=== PATIENT | female | born 1970 | race African-American/Black ===

== ENCOUNTER 2017-08-30 13:05 | Inpatient (IN) | payer SELFPAY ==
[~2017-08-30 13:05] MED LIST: SOLU-Medrol 125 MG VIAL IVP SCH
[2017-08-30] MEDS ORDERED: SOLU-Medrol 125 MG VIAL IVP ONE (13:08)
[2017-08-30] MEDS ORDERED: DUONEB 0.5 MG/3 MG NEB ONE ×2 (13:08→14:53)
--- NOTE | 2017-08-30 13:13 | DR.GENAD ---
HPI - Complaint/Symptoms Chief Complaint Doctors Comments: Patient is complaining of wheezing and chest tightness for the past 20 minutes getting worst. Patient states she has been taking nebulizers at home every 3-4 hours but wheezing got worst. She has a cold, cough, but denies swelling of hands or feet. She denies fever, chills, diarrhea but states she just vomited before coming to the emergency room. - Nurses notes reviewed Nurses Notes Review: Yes - Source History Provided: Patient - Mode of Arrival Mode of Arrival: Ambulatory - Timing Came on: Suddenly - Duration Duration: Constant How lon Duration: Minutes - Location Location: chest tightness with wheezing - Severity Severity: Severe - Modifying Factors Worsens:: exertion Improves:: nothing ROS - Review of Systems Constitutional: No Symptoms Reported, Weakness Eyes: No Symptoms Reported ENTM: No Symptoms Reported Respiratoy: No Symptoms Reported, Non-Productive Cough, Short of Breath, Wheezing. negative: See HPI, Productive Cough, Moist Cough, Dry Cough, Hacking Cough, Barking Cough, Brassy Cough, Orthopnea, Stridor, Hemoptysis, Other Cardiovascular: No Symptoms Reported, Chest Pain. negative: See HPI, Edema, Palpitations, Syncope, Cyanosis, Skin Mottling, Other Gastrointestinal/Abdominal: No Symptoms Reported, Nausea, Vomiting. negative: See HPI, Abdominal Pain, Constipation, Diarrhea, Food Intolerance, Other Genitourinary: No Symptoms Reported Neurological: No Symptoms Reported Musculoskeletal: No Symptoms Reported Integumentary: No Symptoms Reported. negative: See HPI, Change in Color, Change in Hair/Nails, Dryness, Lesions, Lumps, Rash, Itching, Wound, Bruises, Juandice, Other Hematologic/Lymphatic: No Symptoms Reported Endocrine: No Symptoms Reported, Excessive Sweating Psychiatric: No Symptoms Reported PE - Vital Signs Vitals: Temperature 98.6 F Pulse Rate [Apical] 126 Pulse Rate 125 Respiratory Rate 25 Blood Pressure [Right Arm] 143/92 Blood Pressure 185/105 O2 Sat by Pulse Oximetry 91 - General Limitations: No Limitations General Appearance: Alert, In Distress (severe) - Head Head Exam: Normal Inspection, Atraumatic, Normocephalic - Eyes Eye exam: Normal Appearance, PERRL, EOMI. negative: Scleral Icterus, Conjunctival Injection, Nystagmus, Miosis, Mydrasis, Periorbital Swelling, Periorbital Tenderness, Other - ENT ENT Exam: Normal Exam, Normal Oropharynx, Normal External Ear Exam, Mucous Membranes Moist, TM's Normal Bilaterally External Ear Exam: Normal External Inspection TM/Canal Exam: Bilateral Normal Nose Exam: Normal Nose Exam Mouth Exam: Normal Inspection. negative: Drooling, Trismus, Lip Swelling, Tongue Elevation, Tongue Swelling, Laceration, Other Throat Exam: Normal Inspection - Neck Neck Exam: Normal Inspection, Full ROM, Trachea Midline. negative: Tenderness, Meningismus, Lymphadenopathy, Thyromegaly, Other - Chest Chest Inspection: Normal Inspection, Symmetric Chest Wall Rise - Respiratory Respiratory Exam: Normal Lung Sounds Bilat, Accessory Muscle Use, Prolonged Expiratory Phase, Respiratory Distress Respiratory Exam: Bilateral Wheezing (diffuse), Bilateral Rhonchi, Bilateral Decreased Breath Sounds - Cardiovascular Cardiovascular Exam: Regular Rate, Normal Rhythm, Normal Heart Sounds, Systolic Murmur - Abdominal Exam Abdominal Exam: Normal Inspection, Normal Bowel Sounds, Soft. negative: Distention, Tenderness, Guarding, Rebound, Rigidity, Dimnished Bowel Sounds, Hyperactive Bowel Sounds, Hypoactive Bowel Sounds, Organomegaly, Trauma, Incision, Ascites, Mass, Bruit, Pulsatile Mass, Hernia, Other Abdominal Tenderness: negative: RUQ, RLQ, LUQ, LLQ, Epigastrium, Suprapubic, Diffuse, Mild, Moderate, Severe, Other - Extremities Extremities Exam: Normal Inspection, Full ROM, Normal Capillary Refill. negative: Tenderness, Edema, Joint Swelling, Calf Tenderness, Other - Back Back Exam: Normal Inspection, Full ROM. negative: Tenderness, (R) CVA Tenderness, (L) CVA Tenderness, Muscle Spasm, Paraspinal Tenderness, Vertebral Tenderness, Rashes, (R) Sciatic Notch Tenderness, (L) Sciatic Notch Tendern, (R ) Straight Leg Raise, (L) Straight Leg Raise, Other - Neurologic Neurological Exam: Alert, Oriented X3, CN II-XII Intact, Normal Gait, Reflexes Normal - Psychiatric Psychiatric Exam: Normal Affect, Normal Mood. negative: Depressed, Agitated, Anxious, Flat Affect, Manic, Homicidal Ideation, Suicidal Ideation, Other - Skin Skin Exam: Warm, Dry, Intact, Normal Color Course - Reevaluation 1st: Improved - Consultation Called: 14:36 Call Returned: 14:36 (Dr. Crabtree to admit) - Education/Counseling Education/Counseling: Patient, Family Educated On: Treatment, Diagnosis, Needs for Follow Up ROR - Labs Reviewed Laboratory Results Reviewed?: Yes (all labs and x-ray results reviewed and discussed with patient) Result Diagrams: 08/30/17 13:20 08/30/17 13:20 Laboratory: WBC 14.3 X10^3/uL (3.6-10.0) H 08/30/17 13:20 RBC 5.15 X10^6/uL (3.5-5.4) 08/30/17 13:20 Hgb 14.7 g/dL (12.0-16.0) 08/30/17 13:20 Hct 43.4 % (36.0-47.0) 08/30/17 13:20 MCV 84.3 fL (80.0-100.0) 08/30/17 13:20 MCH 28.5 pg (27.0-34.0) 08/30/17 13:20 MCHC 33.8 g/dL (33.0-35.0) 08/30/17 13:20 RDW 17.0 % (11.6-16.5) H 08/30/17 13:20 Plt Count 257 X10^3/uL (150.0-450.0) 08/30/17 13:20 MPV 9.1 fL (7.4-11.0) 08/30/17 13:20 Neut % 20.2 % (42.0-75.0) L 08/30/17 13:20 Lymph % 58.1 % (21.0-51.0) H 08/30/17 13:20 [place] % 9.3 % (0.0-13.0) 08/30/17 13:20 Eos % 11.3 % (0.9-2.9) H 08/30/17 13:20 Baso % 1.1 % (0.2-1.0) H 08/30/17 13:20 Neut # 2.9 x10^3/uL (2.2-4.8) 08/30/17 13:20 Lymph # 8.3 X10^3/uL (1.3-2.9) H 08/30/17 13:20 [place] # 1.3 x10^3/uL (0.3-0.8) H 08/30/17 13:20 Eos # 1.6 x10^3/uL (0.0-0.2) H 08/30/17 13:20 Baso # 0.2 X10^3/uL (0.0-0.1) H 08/30/17 13:20 Absolute Nucleated RBC 0.1 /100WBC 08/30/17 13:20 INR Target Range - 08/30/17 13:20 INR 1.06 (0.8-1.3) 08/30/17 13:20 PTT 26.7 SECONDS (22.9-36.5) 08/30/17 13:20 PTT Comment - 08/30/17 13:20 Sodium 138 mmol/L (136-145) 08/30/17 13:20 Corrected Sodium 140 mmol/L (136-145) 08/30/17 13:20 Potassium 4.4 mmol/L (3.5-5.1) 08/30/17 13:20 Chloride 102 mmol/L (98-107) 08/30/17 13:20 Carbon Dioxide 28.0 mmol/L (21-32) 08/30/17 13:20 BUN 9 mg/dL (7-18) 08/30/17 13:20 Creatinine 1.08 mg/dL (0.55-1.02) H 08/30/17 13:20 Est GFR (MDRD) Af Amer > 60 (>60) 08/30/17 13:20 Est GFR (MDRD) Non-Af 58 (>60) L 08/30/17 13:20 Glucose 179 mg/dL (65-99) H 08/30/17 13:20 Calcium 9.4 mg/dL (8.5-10.1) 08/30/17 13:20 Corrected Calcium TNP 08/30/17 13:20 Magnesium 1.9 mg/dL (1.7-2.9) 08/30/17 13:20 Total Bilirubin 0.30 mg/dL (0.2-1.0) 08/30/17 13:20 AST 29 Units/L (15-37) 08/30/17 13:20 ALT 47 Units/L (12-78) 08/30/17 13:20 Alkaline Phosphatase 78 Units/L (46-116) 08/30/17 13:20 Creatine Kinase 166 Units/L (26-192) 08/30/17 13:20 CK-MB (CK-2) < 1.0 ng/mL (0-4.0) 08/30/17 13:20 CK/CKMB % Calc 0.6 % (<4) 08/30/17 13:20 Troponin I < 0.02 ng/mL (0-1.5) 08/30/17 13:20 Total Protein 8.3 g/dL (6.4-8.2) H 08/30/17 13:20 Albumin 3.8 g/dL (3.4-5.0) 08/30/17 13:20 Globulin 4.5 g/dL (2.5-4.5) 08/30/17 13:20 Albumin/Globulin Ratio 0.8 Ratio (1.1-2.1) L 08/30/17 13:20 - XRAY XRAY Interpreted by: Radiologist (CXR: Normal protable AP chest) - EKG Rate: 127 Rhythm: ST Block: None Hypertrophy: None ST: Nonsp - Diagnosis Discharge Problem: COPD exacerbation, Respiratory distress, acute, Accelerated hypertension, Diabetes mellitus Chronic kidney disease (CKD) Qualifiers: Chronic kidney disease stage: stage 3 (moderate) Qualified Code(s): N18.3 - Chronic kidney disease, stage 3 (moderate) - Discharge Plan Disposition: ADMITTED INPATIENT Condition: Stable - Follow ups/Referrals Follow ups/Referrals: NFD,None [Primary Care Provider] - 3 days - Instructions
[2017-08-30 13:26] VITALS: BMI 35.6
[2017-08-30] MEDS: NS 1000 ML 1,000 ML IV SCH ×2 (13:26→14:16)
--- NOTE | 2017-08-30 13:26 | RAD ---
Examination: Portable AP chest History: Asthma Findings: Normal cardiac size with clear lungs and pleural spaces. Impression: Normal portable AP chest. Reported By:
[2017-08-30 13:28] LABS: BASOPHILS # (AUTO) 0.2 X10^3/uL (0.0-0.1); BASOPHILS % (AUTO) 1.1 % (0.2-1.0); EOSINOPHILS # (AUTO) 1.6 x10^3/uL (0.0-0.2); EOSINOPHILS % (AUTO) 11.3 % (0.9-2.9); HEMATOCRIT 43.4 % (36.0-47.0); HEMOGLOBIN 14.7 g/dL (12.0-16.0); LYMPHOCYTES # (AUTO) 8.3 X10^3/uL (1.3-2.9); LYMPHOCYTES % (AUTO) 58.1 % (21.0-51.0); MEAN CORPUSCULAR HEMOGLOBIN 28.5 pg (27.0-34.0); MEAN CORPUSCULAR HGB CONC 33.8 g/dL (33.0-35.0); MEAN CORPUSCULAR VOLUME 84.3 fL (80.0-100.0); MEAN PLATELET VOLUME 9.1 fL (7.4-11.0); MONOCYTES # (AUTO) 1.3 x10^3/uL (0.3-0.8); MONOCYTES % (AUTO) 9.3 % (0.0-13.0); NEUTROPHILS # (AUTO) 2.9 x10^3/uL (2.2-4.8); NEUTROPHILS % (AUTO) 20.2 % (42.0-75.0); PLATELET COUNT 257 X10^3/uL (150.0-450.0); RED BLOOD COUNT 5.15 X10^6/uL (3.5-5.4); WHITE BLOOD COUNT 14.3 X10^3/uL (3.6-10.0)
[2017-08-30] MEDS: MAGNESIUM SULFATE 1 GM/100 mL PREMIX 2 GM/200 ML BAG IV SCH ×4 (13:36→22:51)
[2017-08-30] MEDS ORDERED: LASIX IVP ONE ×2 (13:37→13:38)
[2017-08-30] MEDS ORDERED: CATAPRES TAB 0.2 MG ONE (13:37)
[2017-08-30] MEDS ORDERED: CATAPRES TAB 0.2 MG PO ONE (13:38)
[2017-08-30 13:46] LABS: BLOOD UREA NITROGEN 9 mg/dL (7-18); CALCIUM 9.4 mg/dL (8.5-10.1); CHLORIDE 102 mmol/L (98-107); COR NA(FOR HYPERGLY) 140 mmol/L (136-145); CREATININE 1.08 mg/dL (0.55-1.02); SODIUM 138 mmol/L (136-145); TROPONIN I < 0.02 ng/mL (0-1.5); eGFR BLACK RACES > 60 (>60); eGFR NON BLACK RACES 58 (>60)
[2017-08-30 14:01] LABS: ALANINE AMINOTRANSFERASE 47 Units/L (12-78); ALBUMIN 3.8 g/dL (3.4-5.0); ALKALINE PHOSPHATASE 78 Units/L (46-116); ASPARTATE AMINO TRANSFERASE 29 Units/L (15-37); CKMB % 0.6 % (<4); CREATINE KINASE 166 Units/L (26-192); CREATINE KINASE MB < 1.0 ng/mL (0-4.0); MAGNESIUM 1.9 mg/dL (1.7-2.9); TOTAL PROTEIN 8.3 g/dL (6.4-8.2)
[2017-08-30] MEDS ORDERED: TORADOL 30 MG VIAL ONE (14:17)
[2017-08-30] MEDS ORDERED: NITROSTAT SL ONE ×2 (14:20→14:21)
[2017-08-30] MEDS ORDERED: TORADOL 30 MG VIAL IVP ONE (14:21)
[2017-08-30] MEDS ORDERED: ROCEPHIN 1 GM IV PREMIX 1 GM/50 ML IV.SOLN. IV ONE ×2 (14:32→15:16)
[2017-08-30] MEDS ORDERED: HYZAAR 50/12.5 MG PO ONE (15:19)
[2017-08-30] MEDS: ROBITUSSIN DM PO PRN ×2 (16:17→23:34)
[2017-08-30] MEDS ORDERED: DUONEB 0.5 MG/3 MG NEB SCH (17:00)
[2017-08-30] MEDS: LEVAQUIN PREMIX IV 500 MG 500 MG/100 ML BAG IV SCH (18:00)
[2017-08-30] MEDS: PROTONIX INJ 40 MG VIAL IVP SCH (18:13)
[2017-08-30] MEDS ORDERED: MAGNESIUM SULFATE 1 GM/100 mL PREMIX 1 GM/100 ML BAG IV SCH (19:00)
[2017-08-30] MEDS ORDERED: XOPENEX 1.25 MG/3 ML NEBULE NEB ONE ×2 (19:59→20:31)
[2017-08-30] MEDS: XOPENEX 1.25 MG/3 ML NEBULE NEB SCH ×2 (20:10→20:30)
[2017-08-30] MEDS ORDERED: DECADRON JET NEB (RESP USE) NEB ONE ×2 (20:30→20:32)
[2017-08-30] MEDS ORDERED: LOPRESSOR INJ 5 MG AMP IVP ONE (20:39)
[2017-08-30] MEDS ORDERED: APRESOLINE INJ 20 MG VIAL IVP PRN ×2 (20:47→21:27)
[2017-08-30] MEDS ORDERED: HALDOL INJ IVP ONE ×2 (20:48→21:30)
[2017-08-30] MEDS: BROVANA IN SCH (21:00)
[2017-08-30] MEDS: PULMICORT NEB TX 0.5 MG NEB SCH (21:00)
[2017-08-30] MEDS ORDERED: CATAPRES TAB 0.1 MG PO SCH (21:00)
[2017-08-30 21:04] LABS: ABG BASE EXCESS 1.5 mmol/L (-2.0-2.0); ABG HCO3 25.9 mmol/L (22-26)
[2017-08-30 21:05] LABS: ABG ALLEN TEST POS; FRACTIONATED INSPIRED OXYGEN 28
[2017-08-30] MEDS ORDERED: PULMICORT NEB TX 0.5 MG NEB ONE (21:08)
[2017-08-30] MEDS ORDERED: BROVANA ONE (21:09)
[2017-08-30] MEDS ORDERED: XOPENEX 1.25 MG/3 ML NEBULE NEB PRN (21:25)
[2017-08-30] MEDS ORDERED: BENADRYL INJ 50 MG VIAL IVP ONE (21:30)
[2017-08-30] MEDS ORDERED: CATAPRES TAB 0.1 MG PO PRN (21:36)
[2017-08-30] MEDS: SOLU-Medrol 125 MG VIAL IVP SCH (21:44)
[2017-08-30] MEDS: NORVASC TAB 5 MG PO SCH (22:50)
[2017-08-30] MEDS: GLUCOPHAGE PO SCH (22:50)
[2017-08-31] MEDS: XOPENEX 1.25 MG/3 ML NEBULE NEB SCH ×5 (00:03→17:11)
--- NOTE | 2017-08-31 00:04 | CT ---
CTA chest with contrast per pulmonary embolism protocol Indication:Shortness of breath and tachycardia Comparison: None available Technique: Multiple axial images of the chest were obtained from the thoracic inlet to the upper abdo men after the administration of IV contrast.Coronal and Sagittal MIP images were also provided. Findings: No central or segmental pulmonary arterial filling defect is identified. There is normal caliber of t he pulmonary artery without CT evidence or right heart strain. The heart size is within normal limits without pericardial effusion. No mediastinal, hilar or axillar y adenopathy. There is moderate peribronchial thickening bilaterally with peribronchial consolidation within the right upper lobe right middle lobe and lingula consistent with acute bronchitis. No dense airspace consolidation, nodule or mass. Central airways are clear. Of note the esophagus indents the posterior wall the trachea suggesting tracheal malacia. Visualized upper abdomen and osseous structures are without acute abnormality. IMPRESSION: 1. No PTE identified. 2. Acute bronchitis. No bronchopneumonia. Reported By:
[2017-08-31] MEDS: NS 1000 ML 1,000 ML IV SCH ×3 (05:13→17:34)
[2017-08-31] MEDS: SOLU-Medrol 125 MG VIAL IVP SCH ×3 (05:16→22:08)
[2017-08-31] MEDS ORDERED: SOLU-Medrol 125 MG VIAL IVP SCH (06:00)
[2017-08-31] MEDS: HumuLIN R SUBCUT PRN ×3 (06:05→20:26)
[2017-08-31 06:18] LABS: BASOPHILS % (AUTO) 0.3 % (0.2-1.0); EOSINOPHILS % (AUTO) 0.1 % (0.9-2.9); HEMATOCRIT 40.4 % (36.0-47.0); HEMOGLOBIN 13.8 g/dL (12.0-16.0); LYMPHOCYTES # (AUTO) 1.5 X10^3/uL (1.3-2.9); LYMPHOCYTES % (AUTO) 9.5 % (21.0-51.0); MEAN CORPUSCULAR HEMOGLOBIN 28.8 pg (27.0-34.0); MEAN CORPUSCULAR HGB CONC 34.2 g/dL (33.0-35.0); MEAN CORPUSCULAR VOLUME 84.1 fL (80.0-100.0); MEAN PLATELET VOLUME 9.6 fL (7.4-11.0); MONOCYTES # (AUTO) 0.2 x10^3/uL (0.3-0.8); MONOCYTES % (AUTO) 1.3 % (0.0-13.0); NEUTROPHILS # (AUTO) 14.4 x10^3/uL (2.2-4.8); NEUTROPHILS % (AUTO) 88.8 % (42.0-75.0); PLATELET COUNT 216 X10^3/uL (150.0-450.0); RED CELL DISTRIBUTION WIDTH 17.4 % (11.6-16.5); WHITE BLOOD COUNT 16.2 X10^3/uL (3.6-10.0)
[2017-08-31] MEDS: GLUCOPHAGE PO SCH ×2 (06:26→17:27)
[2017-08-31 06:51] LABS: CALCIUM 9.2 mg/dL (8.5-10.1); CARBON DIOXIDE 24.4 mmol/L (21-32); CREATININE 1.39 mg/dL (0.55-1.02)
--- NOTE | 2017-08-31 08:30 | RAD ---
STUDY: CHEST, ONE/TWO VIEWS History: COPD. Comparison: August 30, 2017. Findings: The trachea is midline. The lungs are clear of consolidation, significant infiltrate, effusion, or pn eumothorax. There is some prominence of the central pulmonary vascular markings in both lungs. The ca rdiac silhouette, mediastinum and osseous structures are unremarkable. IMPRESSION: 1. Central pulmonary vascular congestion. Reported By:
[2017-08-31] MEDS ORDERED: GLUCOPHAGE ONE (08:33)
[2017-08-31] MEDS: PROTONIX INJ 40 MG VIAL IVP SCH (08:59)
[2017-08-31] MEDS: NORVASC TAB 5 MG PO SCH (08:59)
[2017-08-31] MEDS: HYZAAR 50/12.5 MG PO SCH (08:59)
[2017-08-31] MEDS: LEVAQUIN PREMIX IV 500 MG 500 MG/100 ML BAG IV SCH (09:00)
[2017-08-31] MEDS ORDERED: SOLU-Medrol 40 MG VIAL IVP SCH (09:00)
[2017-08-31] MEDS: ZITHROMAX INJ 500 MG VIAL 250 MG in NS 250 ML IV 250 ML IV SCH (09:07)
[2017-08-31] MEDS: XOPENEX 1.25 MG/3 ML NEBULE NEB PRN (09:17)
[2017-08-31] MEDS: PULMICORT NEB TX 0.5 MG NEB SCH ×2 (09:17→20:47)
[2017-08-31] MEDS: BROVANA IN SCH ×2 (09:17→20:47)
[2017-08-31] MEDS: COLACE CAP 100 MG PO SCH ×2 (19:16→20:01)
[2017-08-31] MEDS: MILK OF MAGNESIA PO SCH ×2 (19:17→20:02)
[2017-08-31] MEDS: SNACK - Diabetic Appropriate PO SCH (19:17)
[2017-08-31] MEDS ORDERED: ULTRAM PO PRN (19:49)
[2017-08-31] MEDS: ROBITUSSIN DM PO PRN (20:27)
[2017-09-01] MEDS: XOPENEX 1.25 MG/3 ML NEBULE NEB SCH ×3 (00:41→11:32)
[2017-09-01] MEDS: SOLU-Medrol 125 MG VIAL IVP SCH ×4 (05:02→21:42)
[2017-09-01] MEDS: ROBITUSSIN DM PO PRN (05:07)
[2017-09-01] MEDS: HumuLIN R SUBCUT PRN ×2 (05:41→21:41)
[2017-09-01] MEDS: GLUCOPHAGE PO SCH (06:07)
[2017-09-01 06:27] LABS: BASOPHILS % (AUTO) 0.2 % (0.2-1.0); HEMATOCRIT 37.2 % (36.0-47.0); HEMOGLOBIN 12.5 g/dL (12.0-16.0); LYMPHOCYTES # (AUTO) 1.1 X10^3/uL (1.3-2.9); LYMPHOCYTES % (AUTO) 7.2 % (21.0-51.0); MEAN CORPUSCULAR HEMOGLOBIN 28.1 pg (27.0-34.0); MEAN CORPUSCULAR HGB CONC 33.6 g/dL (33.0-35.0); MEAN CORPUSCULAR VOLUME 83.5 fL (80.0-100.0); MEAN PLATELET VOLUME 9.7 fL (7.4-11.0); MONOCYTES # (AUTO) 0.4 x10^3/uL (0.3-0.8); MONOCYTES % (AUTO) 2.6 % (0.0-13.0); NEUTROPHILS # (AUTO) 14.3 x10^3/uL (2.2-4.8); PLATELET COUNT 190 X10^3/uL (150.0-450.0); RED BLOOD COUNT 4.46 X10^6/uL (3.5-5.4); RED CELL DISTRIBUTION WIDTH 17.7 % (11.6-16.5); WHITE BLOOD COUNT 15.9 X10^3/uL (3.6-10.0)
[2017-09-01 06:37] LABS: ALANINE AMINOTRANSFERASE 33 Units/L (12-78); ALBUMIN 3.2 g/dL (3.4-5.0); ALKALINE PHOSPHATASE 51 Units/L (46-116); ASPARTATE AMINO TRANSFERASE 15 Units/L (15-37); BLOOD UREA NITROGEN 21 mg/dL (7-18); CALCIUM 8.7 mg/dL (8.5-10.1); CARBON DIOXIDE 25.2 mmol/L (21-32); CHLORIDE 103 mmol/L (98-107); COR CA(FOR HYPOALB) 9.3 mg/dL (8.5-10.1); COR NA(FOR HYPERGLY) 140 mmol/L (136-145); CREATININE 0.99 mg/dL (0.55-1.02); SODIUM 138 mmol/L (136-145); TOTAL PROTEIN 7.1 g/dL (6.4-8.2); eGFR BLACK RACES > 60 (>60); eGFR NON BLACK RACES > 60 (>60)
[2017-09-01] MEDS: XOPENEX 1.25 MG/3 ML NEBULE NEB PRN (09:18)
[2017-09-01] MEDS: BROVANA IN SCH ×2 (09:18→20:46)
[2017-09-01] MEDS: PULMICORT NEB TX 0.5 MG NEB SCH ×2 (09:18→20:45)
[2017-09-01] MEDS: NORVASC TAB 5 MG PO SCH (09:44)
[2017-09-01] MEDS: HYZAAR 50/12.5 MG PO SCH (09:44)
[2017-09-01] MEDS: PROTONIX INJ 40 MG VIAL IVP SCH (09:44)
[2017-09-01] MEDS: LEVAQUIN PREMIX IV 500 MG 500 MG/100 ML BAG IV SCH (09:45)
[2017-09-01] MEDS: ZITHROMAX INJ 500 MG VIAL 250 MG in NS 250 ML IV 250 ML IV SCH (09:45)
[2017-09-01] MEDS: MILK OF MAGNESIA PO SCH ×2 (09:47→21:43)
[2017-09-01] MEDS: NS 1000 ML 1,000 ML IV SCH ×3 (11:22→21:44)
[2017-09-01] MEDS: SNACK - Diabetic Appropriate PO SCH (21:43)
[2017-09-01] MEDS: COLACE CAP 100 MG PO SCH (21:43)
[2017-09-02] MEDS: XOPENEX 1.25 MG/3 ML NEBULE NEB SCH ×3 (00:56→11:46)
[2017-09-02 06:01] LABS: ABG ALLEN TEST POS; ABG BASE EXCESS 4.9 mmol/L (-2.0-2.0); ABG HCO3 29.2 mmol/L (22-26)
[2017-09-02 06:22] LABS: BASOPHILS % (AUTO) 0.1 % (0.2-1.0); HEMATOCRIT 35.6 % (36.0-47.0); LYMPHOCYTES # (AUTO) 0.9 X10^3/uL (1.3-2.9); MEAN CORPUSCULAR HEMOGLOBIN 28.2 pg (27.0-34.0); MEAN CORPUSCULAR HGB CONC 33.9 g/dL (33.0-35.0); MEAN CORPUSCULAR VOLUME 83.3 fL (80.0-100.0); MEAN PLATELET VOLUME 9.4 fL (7.4-11.0); MONOCYTES # (AUTO) 0.3 x10^3/uL (0.3-0.8); MONOCYTES % (AUTO) 2.7 % (0.0-13.0); NEUTROPHILS # (AUTO) 11.5 x10^3/uL (2.2-4.8); NEUTROPHILS % (AUTO) 90.2 % (42.0-75.0); PLATELET COUNT 177 X10^3/uL (150.0-450.0); RED BLOOD COUNT 4.27 X10^6/uL (3.5-5.4); RED CELL DISTRIBUTION WIDTH 17.3 % (11.6-16.5); WHITE BLOOD COUNT 12.7 X10^3/uL (3.6-10.0)
[2017-09-02 06:40] LABS: ALANINE AMINOTRANSFERASE 26 Units/L (12-78); ALKALINE PHOSPHATASE 45 Units/L (46-116); ASPARTATE AMINO TRANSFERASE 12 Units/L (15-37); BLOOD UREA NITROGEN 18 mg/dL (7-18); CALCIUM 8.7 mg/dL (8.5-10.1); CARBON DIOXIDE 27.3 mmol/L (21-32); CHLORIDE 103 mmol/L (98-107); COR CA(FOR HYPOALB) 9.5 mg/dL (8.5-10.1); COR NA(FOR HYPERGLY) 139 mmol/L (136-145); CREATININE 0.79 mg/dL (0.55-1.02); MAGNESIUM 2.3 mg/dL (1.7-2.9); SODIUM 138 mmol/L (136-145); TOTAL PROTEIN 6.6 g/dL (6.4-8.2); eGFR BLACK RACES > 60 (>60); eGFR NON BLACK RACES > 60 (>60)
[2017-09-02 06:48] LABS: PLATELET MORPHOLOGY COMMENT NORMAL (NORMAL)
[2017-09-02] MEDS ORDERED: GLUCOPHAGE ONE (06:49)
[2017-09-02] MEDS: GLUCOPHAGE PO SCH ×2 (06:53→09:16)
[2017-09-02] MEDS: SOLU-Medrol 125 MG VIAL IVP SCH (06:53)
[2017-09-02] MEDS: ZITHROMAX INJ 500 MG VIAL 250 MG in NS 250 ML IV 250 ML IV SCH (08:09)
[2017-09-02] MEDS: NORVASC TAB 5 MG PO SCH (08:09)
[2017-09-02] MEDS: HYZAAR 50/12.5 MG PO SCH (08:09)
[2017-09-02] MEDS: PROTONIX INJ 40 MG VIAL IVP SCH (08:09)
[2017-09-02] MEDS: LEVAQUIN PREMIX IV 500 MG 500 MG/100 ML BAG IV SCH (08:10)
[2017-09-02] MEDS: MILK OF MAGNESIA PO SCH (08:10)
[2017-09-02] MEDS: PULMICORT NEB TX 0.5 MG NEB SCH (08:21)
[2017-09-02] MEDS: BROVANA IN SCH (08:21)
[2017-09-02] MEDS ORDERED: ECOTRIN TAB 325 MG PO SCH (09:00)
[2017-09-02 12:40] VITALS: BP 120/69
== END 2017-09-02 13:30 | disposition home or self-care (01) | DRG 204 ==
LOC: ER 13:26 → ICU 15:13 → UNDOADMIN 15:13
PROVIDERS: ADMIT Internal Medicine; ATTEND Internal Medicine
DX: R06.03 Acute respiratory distress (principal); J45.901 Unspecified asthma with (acute) exacerbation; J44.1 Chronic obstructive pulmonary disease with (acute) exacerbation; J20.8 Acute bronchitis due to other specified organisms; I12.0 Hypertensive chronic kidney disease with stage 5 chronic kidney disease or end stage renal disease; E11.65 Type 2 diabetes mellitus with hyperglycemia; K21.9 Gastro-esophageal reflux disease without esophagitis; N18.3 Chronic kidney disease, stage 3 (moderate); R94.31 Abnormal electrocardiogram [ECG] [EKG]
CPT/HCPCS: 36415; 36600; 71045; 71275; 80048; 80053; 82550; 82553; 82803; 83735; 84484; 85025; 85610; 85730; 87040; 93005; 93010; 94640; 96365; 96367; 96374; 96375; 99284; A4216; A4222; C9113; J0456; J0696; J1200; J1630; J1815; J1885; J1940; J1956; J2930; J3490; J7620; J7626